=== PATIENT | female | born 1970 | race African-American/Black ===

== ENCOUNTER → 2018-04-25 | Outpatient (CLI) | payer BC | END | disposition home or self-care (01) | LOC: MAMMO 13:13 | PROVIDERS: ATTEND Radiology Diagnostic Radiology | DX: Z12.31 Encounter for screening mammogram for malignant neoplasm of breast (principal) | CPT/HCPCS: 77067 ==

== ENCOUNTER → 2018-05-22 | Outpatient (CLI) | payer BC ==
[2018-05-22 07:35] LABS: EOSINOPHILS % 2.5 % (0.0-5.0); HEMATOCRIT. 38.3 % (36.0-48.0); HEMOGLOBIN. 12.5 g/dL (12.0-16.0); MEAN CORPUSCULAR HEMOGLOBIN 29.2 pg (28.0-32.0); MEAN CORPUSCULAR VOLUME 89.3 fL (81.0-99.0); MEAN PLATELET VOLUME 9.8 fl (7.4-10.4); MONOCYTES % 7.1 % (2.0-8.0); NEUTROPHILS % 53.4 % (40.0-76.0); PLATELET 237 x1000/uL (130-400); RED BLOOD CELL COUNT 4.29 mill/uL (4.2-5.4); RED CELL DISTRIBUTION WIDTH 13.5 % (11.6-14.6)
[2018-05-22 07:55] LABS: CHLORIDE 109 mEq/L (98-107)
[2018-05-22 08:03] LABS: LDL CHOLESTEROL 80 mg/dL (5-100)
[2018-05-22 08:04] LABS: HDL CHOLESTEROL 73 mg/dL (40-59); T4 FREE 0.97 ng/dL (0.76-1.46)
[2018-05-22 08:27] LABS: VITAMIN B12 SERUM 490 pg/mL (211-911)
== END | disposition home or self-care (01) ==
LOC: LAB 07:11
PROVIDERS: ATTEND Internal Medicine Critical Care Medicine
DX: Z00.01 Encounter for general adult medical examination with abnormal findings (principal)
CPT/HCPCS: 36415; 80053; 80061; 82607; 84439; 84442; 84443; 84481; 85025

== ENCOUNTER → 2019-07-11 | Outpatient (CLI) | payer BC | END | disposition home or self-care (01) | LOC: MAMMO 06:23 | PROVIDERS: ATTEND Internal Medicine Critical Care Medicine | DX: Z12.31 Encounter for screening mammogram for malignant neoplasm of breast (principal) | CPT/HCPCS: 77067 ==

== ENCOUNTER → 2020-04-09 | Outpatient (CLI) | payer OTHER | END | disposition home or self-care (01) | LOC: MRI 15:38 | PROVIDERS: ATTEND Family Medicine Adult Medicine | DX: S83.511A Sprain of anterior cruciate ligament of right knee, initial encounter (principal); S83.411A Sprain of medial collateral ligament of right knee, initial encounter; S33.140A Subluxation of L4/L5 lumbar vertebra, initial encounter; S83.281A Other tear of lateral meniscus, current injury, right knee, initial encounter; M48.05 Spinal stenosis, thoracolumbar region; M94.261 Chondromalacia, right knee; M25.761 Osteophyte, right knee; M17.11 Unilateral primary osteoarthritis, right knee; M79.89 Other specified soft tissue disorders; X58.XXXA Exposure to other specified factors, initial encounter; Y93.89 Activity, other specified; Y92.89 Other specified places as the place of occurrence of the external cause; Y99.8 Other external cause status | CPT/HCPCS: 72148; 73721 ==

== ENCOUNTER 2021-07-26 08:37 | Emergency (ER) | payer BC, OTHER ==
[~2021-07-26] VITALS: Ht 172.7 cm; Wt 125.0 kg
[2021-07-26] MEDS ORDERED: ACETAMINOPHEN 325MG TABLET PO ONE (09:15)
[2021-07-26] MEDS ORDERED: IBUP-2029 MT (10:07)
[2021-07-26] MEDS ORDERED: SKEL800 MT (10:07)
[2021-07-26 10:43] VITALS: BP 141/89
== END 2021-07-26 10:50 | disposition home or self-care (01) ==
LOC: ER 08:37
DX: S16.1XXA Strain of muscle, fascia and tendon at neck level, initial encounter (principal); M54.2 Cervicalgia; Z79.899 Other long term (current) drug therapy; V49.88XA Car occupant (driver) (passenger) injured in other specified transport accidents, initial encounter; Y93.89 Activity, other specified; Y92.89 Other specified places as the place of occurrence of the external cause; Y99.8 Other external cause status
CPT/HCPCS: 99284

== ENCOUNTER → 2021-08-19 | Outpatient (CLI) | payer BC ==
[~2021-08-19] MED LIST: IBUP-2029 MT; SKEL800 MT
[2021-08-19 08:49] LABS: BASOPHILS % 1.1 % (0.0-2.0); EOSINOPHILS % 1.8 % (0.0-5.0); HEMOGLOBIN. 13.6 g/dL (12.0-16.0); LYMPHOCYTES % 32.3 % (20.0-50.0); MEAN CORPUSCULAR HEMOGLOBIN 31.1 pg (28.0-32.0); MEAN CORPUSCULAR VOLUME 91.9 fL (81.0-99.0); MEAN PLATELET VOLUME 10.2 fl (7.4-10.4); MONOCYTES % 6.8 % (2.0-8.0); PLATELET 248 x1000/uL (130-400); RED BLOOD CELL COUNT 4.35 mill/uL (4.2-5.4); RED CELL DISTRIBUTION WIDTH 13.2 % (11.6-14.6)
[2021-08-19 09:08] LABS: CHLORIDE 110 mEq/L (98-107)
[2021-08-19 09:18] LABS: LDL CHOLESTEROL 99 mg/dL (5-100)
[2021-08-19 09:19] LABS: HDL CHOLESTEROL 80 mg/dL (40-59); T4 FREE 0.96 ng/dL (0.76-1.46)
== END | disposition home or self-care (01) ==
LOC: LAB 07:43
PROVIDERS: ATTEND Internal Medicine Critical Care Medicine
DX: Z00.00 Encounter for general adult medical examination without abnormal findings (principal)
CPT/HCPCS: 36415; 80053; 80061; 82306; 83036; 84439; 84443; 84481; 85025

== ENCOUNTER → 2021-11-14 | Outpatient (CLI) | payer BC | END | disposition home or self-care (01) | LOC: LAB 09:22 | PROVIDERS: ATTEND Internal Medicine Critical Care Medicine | DX: E55.9 Vitamin D deficiency, unspecified (principal); M54.2 Cervicalgia | CPT/HCPCS: 72050; 82306 ==

== ENCOUNTER → 2023-01-19 | Outpatient (CLI) | payer OTHER, BC | END | disposition home or self-care (01) | LOC: MRI 06:25 | DX: S83.241A Other tear of medial meniscus, current injury, right knee, initial encounter (principal); S83.242A Other tear of medial meniscus, current injury, left knee, initial encounter; M17.0 Bilateral primary osteoarthritis of knee; M71.21 Synovial cyst of popliteal space [Baker], right knee; X58.XXXA Exposure to other specified factors, initial encounter; Y93.89 Activity, other specified; Y92.89 Other specified places as the place of occurrence of the external cause; Y99.8 Other external cause status | CPT/HCPCS: 73721 ==

== ENCOUNTER → 2023-04-09 | Outpatient (CLI) | payer BC ==
[2023-04-09 12:26] LABS: CHLORIDE 108 mEq/L (98-107)
== END | disposition home or self-care (01) ==
LOC: RAD 07:55
PROVIDERS: ATTEND Internal Medicine Critical Care Medicine
DX: M10.9 Gout, unspecified (principal); M77.32 Calcaneal spur, left foot
CPT/HCPCS: 36415; 73630; 80053

== ENCOUNTER → 2024-03-14 | Outpatient (CLI) | payer BC ==
[2024-03-14 07:34] LABS: CHLORIDE 109 mEq/L (98-107); POTASSIUM 4.4 mEq/L (3.5-5.1); SODIUM 141 mEq/L (136-145)
[2024-03-14 07:35] LABS: CALCIUM 9.5 mg/dL (8.7-10.4); CARBON DIOXIDE 26 mEq/L (21-32)
[2024-03-14 07:38] LABS: BASOPHILS % 0.9 % (0.0-2.0); DIFFERENTIAL COMMENT 0; EOSINOPHILS % 3.2 % (0.0-5.0); HEMATOCRIT. 38.7 % (36.0-48.0); HEMOGLOBIN. 12.5 g/dL (12.0-16.0); LYMPHOCYTES % 32.8 % (20.0-50.0); MEAN CORPUSCULAR HEMOGLOBIN 29.2 pg (28.0-32.0); MEAN CORPUSCULAR HGB CONC 32.3 g/dL (31.0-37.0); MEAN CORPUSCULAR VOLUME 90.3 fL (81.0-99.0); MEAN PLATELET VOLUME 9.9 fl (7.4-10.4); MONOCYTES % 7.1 % (2.0-8.0); PLATELET 268 x1000/uL (130-400); RED BLOOD CELL COUNT 4.29 mill/uL (4.2-5.4); RED CELL DISTRIBUTION WIDTH 13.8 % (11.6-14.6); WHITE BLOOD COUNT 5.4 x1000/uL (4.5-11.0)
[2024-03-14 07:40] LABS: CREATININE 0.7 mg/dL (0.6-1.0); GLUCOSE 92 mg/dL (70-105); TRIGLYCERIDE 57 mg/dL (0-150); UREA NITROGEN BLOOD 13 mg/dL (9-23)
[2024-03-14 07:41] LABS: LDL CHOLESTEROL 104 mg/dL (5-100)
[2024-03-14 07:42] LABS: ALANINE AMINOTRANSFERASE 14 IU/L (10-49); ALBUMIN 4.4 g/dL (3.2-4.8); ASPARTATE AMINOTRANSFERASE 21 IU/L (<34); CHOLESTEROL 179 mg/dL (<200); HDL CHOLESTEROL 73 mg/dL (>65)
[2024-03-14 07:43] LABS: BILIRUBIN TOTAL 0.4 mg/dL (0.1-1.0); PROTEIN TOTAL 6.5 g/dL (6.0-8.3)
[2024-03-14 07:44] LABS: THYROID STIMULATING HORMONE 2.59 uIU/mL (0.55-4.78)
[2024-03-15 08:11] LABS: PROGESTERONE 0.2 ng/mL (.); VITAMIN D 25-OH 17.8 ng/mL (30.0-100.0)
== END | disposition home or self-care (01) ==
LOC: CARD 06:35
PROVIDERS: ATTEND Internal Medicine Critical Care Medicine
DX: I07.1 Rheumatic tricuspid insufficiency (principal); R00.2 Palpitations; Z00.00 Encounter for general adult medical examination without abnormal findings
CPT/HCPCS: 36415; 80053; 80061; 82306; 83036; 84144; 84439; 84443; 84481; 85025; 93306

== ENCOUNTER → 2024-05-22 | Outpatient (CLI) | payer OTHER | END | disposition home or self-care (01) | LOC: MRI 06:10 | DX: S83.242A Other tear of medial meniscus, current injury, left knee, initial encounter (principal); S83.282A Other tear of lateral meniscus, current injury, left knee, initial encounter; S83.512A Sprain of anterior cruciate ligament of left knee, initial encounter; M17.12 Unilateral primary osteoarthritis, left knee; X58.XXXA Exposure to other specified factors, initial encounter; Y93.89 Activity, other specified; Y92.89 Other specified places as the place of occurrence of the external cause; Y99.8 Other external cause status | CPT/HCPCS: 73721 ==

== ENCOUNTER → 2025-02-17 | Outpatient (CLI) | payer BC ==
[2025-02-17 14:06] LABS: BASOPHILS % 1.1 % (0.0-2.0); DIFFERENTIAL COMMENT 0; EOSINOPHILS % 2.6 % (0.0-5.0); HEMATOCRIT. 38.3 % (36.0-48.0); HEMOGLOBIN. 12.1 g/dL (12.0-16.0); LYMPHOCYTES % 35.8 % (20.0-50.0); MEAN CORPUSCULAR HGB CONC 31.7 g/dL (31.0-37.0); MEAN CORPUSCULAR VOLUME 88.2 fL (81.0-99.0); MEAN PLATELET VOLUME 9.9 fl (7.4-10.4); MONOCYTES % 6.7 % (2.0-8.0); NEUTROPHILS % 53.8 % (40.0-76.0); PLATELET 275 x1000/uL (130-400); RED BLOOD CELL COUNT 4.34 mill/uL (4.2-5.4); RED CELL DISTRIBUTION WIDTH 14.2 % (11.6-14.6); WHITE BLOOD COUNT 5.8 x1000/uL (4.5-11.0)
[2025-02-17 14:16] LABS: CHLORIDE 104 mEq/L (98-107); POTASSIUM 4.8 mEq/L (3.5-5.1); SODIUM 138 mEq/L (136-145)
[2025-02-17 14:17] LABS: CARBON DIOXIDE 28 mEq/L (21-32)
[2025-02-17 14:18] LABS: CALCIUM 9.4 mg/dL (8.7-10.4)
[2025-02-17 14:23] LABS: CREATININE 0.8 mg/dL (0.6-1.0); GLUCOSE 93 mg/dL (70-105)
[2025-02-17 14:24] LABS: ALANINE AMINOTRANSFERASE 13 IU/L (10-49); ALBUMIN 4.4 g/dL (3.2-4.8); ASPARTATE AMINOTRANSFERASE 19 IU/L (<34); CHOLESTEROL 182 mg/dL (<200); LDL CHOLESTEROL 108 mg/dL (5-100); TRIGLYCERIDE 105 mg/dL (0-150); UREA NITROGEN BLOOD 10 mg/dL (9-23)
[2025-02-17 14:25] LABS: HDL CHOLESTEROL 67 mg/dL (>65)
[2025-02-17 14:26] LABS: BILIRUBIN TOTAL 0.4 mg/dL (0.1-1.0); PROTEIN TOTAL 6.5 g/dL (6.0-8.3)
== END | disposition home or self-care (01) ==
LOC: LAB 13:34
PROVIDERS: ATTEND Internal Medicine Critical Care Medicine
DX: I10 Essential (primary) hypertension (principal); D50.9 Iron deficiency anemia, unspecified; K76.9 Liver disease, unspecified
CPT/HCPCS: 36415; 80053; 80061; 85025

== ENCOUNTER → 2025-02-24 | Outpatient (CLI) | payer BC | END | disposition home or self-care (01) | LOC: CARD 06:41 | PROVIDERS: ATTEND Internal Medicine Critical Care Medicine | DX: I35.1 Nonrheumatic aortic (valve) insufficiency (principal); R55 Syncope and collapse | CPT/HCPCS: 93005; 93306; 93880 ==

== ENCOUNTER → 2025-03-06 | Outpatient (CLI) | payer BC ==
[2025-03-06 15:03] LABS: C REACTIVE PROTEIN QUANT 4.5 mg/L (0.0-3.0)
[2025-03-06 15:06] LABS: TRIOIODOTHYRONINE TOTAL 1.09 ng/ml (0.60-1.81)
[2025-03-06 15:07] LABS: VITAMIN B12 SERUM 587 pg/mL (211-911)
[2025-03-06 15:08] LABS: T4 FREE 1.18 ng/dL (0.89-1.76); THYROID STIMULATING HORMONE 0.95 uIU/mL (0.55-4.78)
[2025-03-09 17:10] LABS: ANTI-DNA DOUBLE STRANDED QUANT 1 IU/mL (0-9); ANTI-NUCLEAR ANTIBODIES DIRECT Negative (Negative)
[2025-03-10 04:07] LABS: COMPLEMENT C3 152 mg/dL (82-167); COMPLEMENT C4 32 mg/dL (12-38); VITAMIN D 25-OH 17.7 ng/mL (30.0-100.0)
== END | disposition home or self-care (01) ==
LOC: LAB 13:45
PROVIDERS: ATTEND Nurse Practitioner Acute Care
DX: D89.9 Disorder involving the immune mechanism, unspecified (principal); E34.9 Endocrine disorder, unspecified; E66.01 Morbid (severe) obesity due to excess calories; G72.49 Other inflammatory and immune myopathies, not elsewhere classified; R89.1 Abnormal level of hormones in specimens from other organs, systems and tissues; E88.819 Insulin resistance, unspecified; R52 Pain, unspecified
CPT/HCPCS: 36415; 82306; 82607; 83036; 84439; 84443; 84480; 84481; 84550; 85651; 86038; 86140; 86160; 86225; 86430

== ENCOUNTER → 2025-04-01 | Outpatient (CLI) | payer BC | END | disposition home or self-care (01) | LOC: LAB 07:03 | PROVIDERS: ATTEND Internal Medicine Critical Care Medicine | DX: E23.0 Hypopituitarism (principal) | CPT/HCPCS: 84402; 84403 ==